=== PATIENT | female | born 1965 | race Caucasian/White ===

== ENCOUNTER 2016-12-23 15:10 | Observation (INO) | payer MEDICAID ==
[~2016-12-23] VITALS: Ht 172.7 cm; Wt 109.0 kg
[2016-12-23 15:24] VITALS: BP 143/89; PULSE 82; RESP 17; TEMP 98.3; O2SAT 96
[2016-12-23 15:28] VITALS: BP 143/89; PULSE 79; RESP 16; O2SAT 97
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
[2016-12-23 16:00] LABS: AUTOMATED NEUTROPHIL # 6.1 TH/MM3 (1.8-7.7); BASOPHIL % 0.4 % (0.0-2.0); EOSINOPHIL # 0.4 TH/MM3 (0-0.4); EOSINOPHIL % 3.4 % (0.0-4.0); HEMATOCRIT 37.5 % (35.0-46.0); HEMO FLAGS DIFF FINAL; LYMPH % 27.6 % (9.0-44.0); LYMPHOCYTE # 2.9 TH/MM3 (1.0-4.8); MEAN CELL VOLUME 84.3 FL (80.0-100.0); MEAN CORPUSCULAR HEMOGLOBIN 26.9 PG (27.0-34.0); MEAN CORPUSCULAR HGB CONC 31.9 % (32.0-36.0); MONO % 9.9 % (0.0-8.0); NEUT % 58.7 % (16.0-70.0); PLATELET COUNT 304 TH/MM3 (150-450); RED BLOOD COUNT 4.45 MIL/MM3 (4.00-5.30); WHITE BLOOD COUNT 10.4 TH/MM3 (4.0-11.0)
[2016-12-23 16:13] LABS: ANION GAP 7 MEQ/L (5-15); BICARBONATE 24.6 MEQ/L (21.0-32.0); BLOOD UREA NITROGEN 23 MG/DL (7-18); CHLORIDE 108 MEQ/L (98-107); GLOMERULAR FILTRATION RATE 53 ML/MIN (>89); MAGNESIUM 2.3 MG/DL (1.5-2.5); POTASSIUM 3.6 MEQ/L (3.5-5.1); SODIUM (NA) 140 MEQ/L (136-145)
[2016-12-23 16:15] LABS: PROTHROMBIN TIME - PATIENT 10.5 SEC (9.8-11.6)
[2016-12-23] MEDS ORDERED: AMLO5TAB2 PO (16:19)
[2016-12-23] MEDS ORDERED: LEVO.05 PO (16:19)
[2016-12-23] MEDS ORDERED: HYDR-3366 PO (16:19)
[2016-12-23] MEDS ORDERED: LYRI100C PO (16:19)
[2016-12-23] MEDS ORDERED: TIZA4TAB PO (16:19)
[2016-12-23] MEDS ORDERED: OMEP20TA PO (16:19)
[2016-12-23] MEDS ORDERED: LISI40TA PO (16:19)
[2016-12-23] MEDS ORDERED: METO50TA PO (16:19)
--- NOTE | 2016-12-23 16:25 | RADRPT ---
EXAM DATE/TIME: 12/23/2016 15:45 [facility] COMPARISON: No previous studies available for comparison. INDICATIONS : Chest pain and back pain. MEDICAL HISTORY : Congestive heart failure. Myocardial infarction. Chronic obstructive pulmonary disease. SURGICAL HISTORY : None. ENCOUNTER: Initial ACUITY: 1 day PAIN SCORE: 7/10 LOCATION: Bilateral chest FINDINGS: There is mild streaky atelectasis of both bases. No pleural effusion. No pneumothorax. Heart size upp er limits of normal. CONCLUSION: Mild bibasilar atelectasis. Surjit Martel MD on December 23, 2016 at 16:23 Board Certified Radiologist. This report was verified electronically.
[2016-12-23] MEDS ORDERED: LORazepam 2 MG/ML VIAL IV PUSH ONE (16:45)
[2016-12-23] MEDS ORDERED: ACETAMINOPHEN/HYDROcodone 325 MG/10 MG TAB PO ONE (17:30)
[2016-12-23] MEDS ORDERED: MORPHINE SULFATE 4 MG/ML INJ IV PUSH ONE (17:45)
[2016-12-23] MEDS ORDERED: CEPH-460 PO (17:53)
[2016-12-23] MEDS ORDERED: SODIUM CHLORIDE 0.9% FLUSH 10 ML FLUSH IV FLUSH PRN (18:00)
[2016-12-23] MEDS ORDERED: CEPHALEXIN MONOHYDRATE 500 MG CAP PO ONE (18:00)
[2016-12-23 18:22] VITALS: BP 151/85; PULSE 86; RESP 16; O2SAT 95
[2016-12-23 19:01] LABS: CREATINE KINASE 109 U/L (26-192)
--- NOTE | 2016-12-23 19:13 | EKG ---
Date Performed: 12/23/2016 Time Performed: 15:33:04 PTAGE: 51 years EKG: Sinus rhythm POSSIBLE LEFT ATRIAL ENLARGEMENT BORDERLINE ECG NO PREVIOUS TRACING DOCTOR: Loi Arthur Interpretating Date/Time 12/23/2016 19:12:43
[2016-12-23 19:17] LABS: CKMB 2.8 NG/ML (0.5-3.6)
[2016-12-23 20:00] VITALS: O2SAT 97
[2016-12-23 20:42] VITALS: BP 147/87; PULSE 66; RESP 18; TEMP 98.7; O2SAT 97
--- NOTE | 2016-12-23 21:44 | EKG ---
Date Performed: 12/23/2016 Time Performed: 18:40:02 PTAGE: 51 years EKG: Sinus rhythm POSSIBLE LEFT ATRIAL ENLARGEMENT BORDERLINE ECG PREVIOUS TRACING : 12/23/2016 15.33 No significant change from previous tracing noted. DOCTOR: Loi Arthur Interpretating Date/Time 12/23/2016 21:42:36
[2016-12-23] MEDS: SODIUM CHLORIDE 0.9% FLUSH 10 ML FLUSH IV FLUSH SCH (21:55)
[2016-12-23 22:41] LABS: CREATINE KINASE 100 U/L (26-192)
[2016-12-24] VITALS (7 sets, daily range): BP systolic 130–159; BP diastolic 69–79; PULSE 73–99; RESP 16–20; TEMP 98–98.6; O2SAT 87–99
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
[2016-12-24] MEDS ORDERED: ACETAMINOPHEN 500 MG CPLT PO PRN (08:00)
[2016-12-24] MEDS ORDERED: ONDANSETRON HCL 4 MG/2 ML VIAL IV PUSH PRN (08:00)
[2016-12-24] MEDS ORDERED: NITROGLYCERIN 0.4 MG SL 25 TABS/BTL SL PRN (08:00)
[2016-12-24] MEDS: SODIUM CHLORIDE 0.9% FLUSH 10 ML FLUSH IV FLUSH SCH (09:00)
[2016-12-24] MEDS ORDERED: ASPIRIN 325 MG TAB PO SCH (09:00)
[2016-12-24] MEDS ORDERED: REGADENOSON INJ 0.4 MG/5 ML SYR ONE (09:43)
--- NOTE | 2016-12-24 11:24 | RADRPT ---
EXAM DATE/TIME: 12/24/2016 08:43 [facility] COMPARISON: No previous studies available for comparison. INDICATIONS : Midsternal chest pain. Angina. Congestive heart failure. DOSE: 35.0 mCi Tc99m Myoview at stress. 11.0 mCi Tc99m Myoview at rest. 0.4 mg Lexiscan STRESS SYMPTOMS: None. EJECTION FRACTION: 53% MEDICAL HISTORY : Myocardial infarction. Chronic obstructive pulmonary disease. Hypertension. SURGICAL HISTORY : Cholecystectomy. Left knee and neck surgery. ENCOUNTER: Initial ACUITY: 1 day PAIN SCALE: 3/10 LOCATION: Midsternal chest TECHNIQUE: The patient underwent pharmacologic stress with infusion of prescribed dose. Continuous ECG tracing was monitored during stress. Gated SPECT imaging was performed after stress and conventional SPECT i maging was performed at rest. The examination was performed on a SPECT/CT scanner, both attenuation and non-corrected datasets were reviewed. FINDINGS: DISTRIBUTION: The maximum perfused segment at stress is in the anterior wall. PERFUSION STUDY: Pattern of perfusion at stress shows a fixed diminished perfusion to the lower anterior wall. There i s about 10% redistribution segments of the anterior and lateral marte which would not be considered s tatistically significant. GATED STUDY: There is intact wall motion and thickening without hypokinetic or dyskinetic segments. CONCLUSION: 1. Fixed diminished perfusion to the low anterior wall possibly representing an old LAD infarct. 2. No reversibility to suggest ischemia. 3. Adequate wall motion throughout with an estimated ejection fraction of 53%. RISK CATEGORY: Low (<1% Annual Mortality Rate) Awais Yee MD on December 24, 2016 at 10:52 Board Certified Radiologist. This report was verified electronically.
--- NOTE | 2016-12-24 12:13 | HHI.DCPOC ---
Discharge Care Plan Diagnosis: (1) Atypical chest pain (2) Hx of coronary artery disease (3) Situational stress (4) Folliculitis Goals to Promote Your Health * To prevent worsening of your condition and complications * To maintain your health at the optimal level Directions to Meet Your Goals Take your medications as prescribed Follow your dietary instruction Follow activity as directed Keep your appointments as scheduled Take your immunizations and boosters as scheduled If your symptoms worsen call your PCP, if no PCP go to Urgent Care Center or Emergency Room Smoking is Dangerous to Your Health. Avoid second hand smoke Call the 24-hour hour crisis hotline for domestic abuse at [facility] Dec 24, 2016 12:03
[2016-12-24] MEDS ORDERED: ACETAMINOPHEN/HYDROcodone 325 MG/10 MG TAB PO PRN (12:30)
[2016-12-24] MEDS ORDERED: CEPH-460 PO (12:31)
[2016-12-24] MEDS ORDERED: PREGABALIN 100 MG CAP PO SCH (13:00)
[2016-12-24] MEDS ORDERED: CEPHALEXIN MONOHYDRATE 500 MG CAP PO ONE (13:15)
--- NOTE | 2016-12-24 14:05 | EKG ---
Date Performed: 12/23/2016 Time Performed: 22:15:57 PTAGE: 51 years EKG: Sinus rhythm POSSIBLE LEFT ATRIAL ENLARGEMENT BORDERLINE ECG PREVIOUS TRACING : 12/23/2016 22.15 Since previous tracing, no significant change noted DOCTOR: Delta Pierre Interpretating Date/Time 12/25/2016 06:56:26
--- NOTE | 2016-12-24 14:07 | TR ---
Date Performed: 12/24/2016 Time Performed: 09:46:38 DOCTOR: Delta Pierre DRUG LIST: CLINICAL HISTORY: ANGINA REASON FOR TEST: Angina REASON FOR ENDING: OBSERVATION: CONCLUSION: Lexiscan stress test was performed under standard four minute protocol. Radionuclid e was injected one minute prior to ending the test. No electrocardiographic abormalities were present to suggest ischemia. Nuclear imaging and interpretation are pending. COMMENTS:
[2016-12-24] MEDS ORDERED: LEVOTHYROXINE SODIUM 50 MCG TAB PO SCH (15:00)
== END 2016-12-24 13:51 | disposition home or self-care (01) ==
LOC: NEPC 15:10 → NEDA 17:46 → NEPHCDU 19:04
DX: R07.89 Other chest pain (principal); I25.10 Atherosclerotic heart disease of native coronary artery without angina pectoris; L73.9 Follicular disorder, unspecified; F43.0 Acute stress reaction; I11.0 Hypertensive heart disease with heart failure; I50.9 Heart failure, unspecified; G25.81 Restless legs syndrome; J44.9 Chronic obstructive pulmonary disease, unspecified; I25.2 Old myocardial infarction; M79.7 Fibromyalgia; E03.9 Hypothyroidism, unspecified; K21.9 Gastro-esophageal reflux disease without esophagitis; I71.9 Aortic aneurysm of unspecified site, without rupture
CPT/HCPCS: 71010; 78452; 80048; 82550; 82552; 83735; 83880; 84484; 85025; 85610; 85730; 93005; 93017; 96374; 96375; 99285; A9502; G0378; J2060; J2270; J2785

== ENCOUNTER 2017-08-20 23:35 | Inpatient (IN) | payer MEDICAID ==
[~2017-08-20] VITALS: Ht 172.7 cm; Wt 125.3 kg
[2017-08-20] MEDS: methylPREDNISolone SOD SUCC 125 MG/2 ML VIAL IV PUSH SCH (19:30)
[2017-08-20] MEDS: RESP: ALBUTEROL 2.5 MG/IPRATROPIUM 0.5 MG NEB (SCH) INH ×2 (20:00→22:00)
[~2017-08-20 23:35] MED LIST: AMLO5TAB2 PO; CELE50CA PO; CEPH-460 PO; FURO40TA PO; HYDR-3366 PO; LEVO.05 PO; LISI40TA PO; LISINOPRIL 20 MG TAB PO SCH; LYRI100C PO; METO50TA PO; OMEP20TA93 PO; POTA-163 PO; PROZ20CA11 PO; ROPI2 PO; TIZA4TAB PO
[2017-08-21] VITALS (11 sets, daily range): BP systolic 127–189; BP diastolic 68–99; PULSE 63–82; RESP 20–22; TEMP 96.9–97.9; O2SAT 90–95
[2017-08-21] MEDS: RESP: ALBUTEROL 2.5 MG/IPRATROPIUM 0.5 MG NEB (SCH) INH ×9 (00:02→20:02)
[2017-08-21] MEDS: HEPARIN SODIUM - SQ 10,000 UNITS/ML VIAL SQ SCH ×3 (00:23→20:40)
[2017-08-21] MEDS: SODIUM CHLORIDE 0.9% FLUSH 10 ML FLUSH IV FLUSH SCH ×3 (00:23→20:38)
[2017-08-21] MEDS: PREGABALIN 100 MG CAP PO SCH ×3 (00:24→20:39)
[2017-08-21] MEDS: ACETAMINOPHEN/HYDROcodone 325 MG/10 MG TAB PO PRN ×4 (00:30→20:41)
[2017-08-21] MEDS ORDERED: FUROSEMIDE 40 MG/4 ML VIAL IV PUSH ONE (00:45)
[2017-08-21] MEDS: SODIUM CHLORIDE 0.9% FLUSH 10 ML FLUSH IV FLUSH PRN ×2 (01:12→06:42)
[2017-08-21] MEDS: methylPREDNISolone SOD SUCC 125 MG/2 ML VIAL IV PUSH SCH ×4 (01:12→20:38)
[2017-08-21] MEDS: LEVOTHYROXINE SODIUM 50 MCG TAB PO SCH (05:57)
[2017-08-21] MEDS: PANTOPRAZOLE SOD 20 MG DELAYED RELEASE TAB PO SCH (08:45)
[2017-08-21] MEDS: METOPROLOL TARTRATE 50 MG TAB PO SCH (08:45)
[2017-08-21] MEDS: FUROSEMIDE 40 MG TAB PO SCH ×2 (08:46→20:39)
[2017-08-21] MEDS: POTASSIUM CHLORIDE 20 MEQ CONTROLLED RELEASE TAB PO SCH (08:46)
[2017-08-21] MEDS: amLODIPine BESYLATE 5 MG TAB PO SCH (08:46)
[2017-08-21] MEDS: FLUoxetine HCL 20 MG CAP PO SCH (08:46)
[2017-08-21] MEDS ORDERED: FUROSEMIDE 20 MG/2 ML VIAL IV PUSH SCH (09:00)
[2017-08-21] MEDS ORDERED: POTASSIUM CHLORIDE 10 MEQ CONTROLLED RELEASE TAB PO SCH (09:00)
[2017-08-21 11:18] LABS: AUTOMATED NEUTROPHIL # 8.8 TH/MM3 (1.8-7.7); BASOPHIL # 0.1 TH/MM3 (0-0.2); BASOPHIL % 0.7 % (0.0-2.0); HEMATOCRIT 34.4 % (35.0-46.0); HEMOGLOBIN 10.8 GM/DL (11.6-15.3); LYMPH % 5.2 % (9.0-44.0); LYMPHOCYTE # 0.5 TH/MM3 (1.0-4.8); MEAN CELL VOLUME 87.2 FL (80.0-100.0); MEAN CORPUSCULAR HEMOGLOBIN 27.3 PG (27.0-34.0); MEAN CORPUSCULAR HGB CONC 31.3 % (32.0-36.0); MEAN PLATELET VOLUME 8.8 FL (7.0-11.0); MONO % 1.1 % (0.0-8.0); MONOCYTE # 0.1 TH/MM3 (0-0.9); PLATELET COUNT 232 TH/MM3 (150-450); RED BLOOD COUNT 3.94 MIL/MM3 (4.00-5.30); RED CELL DISTRIBUTION WIDTH 14.5 % (11.6-17.2); WHITE BLOOD COUNT 9.5 TH/MM3 (4.0-11.0)
[2017-08-21 11:42] LABS: BICARBONATE 25.6 MEQ/L (21.0-32.0); CALCIUM 8.9 MG/DL (8.5-10.1); CREATININE 1.1 MG/DL (0.50-1.00)
--- NOTE | 2017-08-21 12:38 | HHI.HP ---
[facility] Primary Care Physician Unknown Admission Diagnosis Diagnoses: Chief Complaint: Shortness of breath and cough Travel History International Travel<30 Days: No Contact w/Intl Traveler <30 Da: No Traveled to Known Affected Are: No History of Present Illness This patient is a very pleasant 52-year-old male with a history of COPD and sleep apnea who has come to the hospital with increasing shortness of breath and increased work of breathing over the last 3 days. There is been no fever or chills. She does have a dry cough and has admitted some hoarseness. She did come to the emergency room in [place] and was found to be hypoxemic at 87% on room air. She did recover quickly with oxygen. Her x-ray does show some interstitial markings. And the patient's are recommended for further evaluation for acute COPD exacerbation. She did improve with bronchodilators by nebulizer as well as IV steroids. Review of Systems Constitutional: DENIES: Diaphoretic episodes, Fatigue, Fever, Weight gain, Weight loss, Chills, Dizziness, Change in appetite, Night Sweats Endocrine: DENIES: Abnorml menstrual pattern, Heat/cold intolerance, Polydipsia , Polyuria, Polyphagia Eyes: DENIES: Blurred vision, Diplopia, Eye inflammation, Eye pain, Vision loss , Photosensitivity, Double Vision Ears, nose, mouth, throat: DENIES: Tinnitus, Hearing loss, Vertigo, Nasal discharge, Oral lesions, Throat pain, Hoarseness, Ear Pain, Running Nose, Epistaxis, Sinus Pain, Toothache, Odynophagia Respiratory: COMPLAINS OF: Cough, Shortness of breath, DENIES: Apneas, Snoring , Wheezing, Hemoptysis, Sputum production Cardiovascular: DENIES: Chest pain, Palpitations, Syncope, Dyspnea on Exertion , PND, Lower Extremity Edema, Orthopnea, Claudication Gastrointestinal: DENIES: Abdominal pain, Black stools, Bloody stools, Constipation, Diarrhea, Nausea, Vomiting, Difficulty Swallowing, Anorexia Genitourinary: DENIES: Abnormal vaginal bleeding, Dysmenorrhea, Dyspareunia, Sexual dysfunction, Urinary frequency, Urinary incontinence, Urgency, Hematuria , Dysuria, Nocturia, Vaginal discharge Musculoskeletal: DENIES: Joint pain, Muscle aches, Stiffness, Joint Swelling, Back pain, Neck pain Integumentary: DENIES: Abnormal pigmentation, Pruritus, Rash, Nail changes, Breast masses, Breast skin changes, Nipple discharge Hematologic/lymphatic: DENIES: Bruising, Lymphadenopathy Immunologic/allergic: DENIES: Eczema, Urticaria Neurologic: DENIES: Abnormal gait, Headache, Localized weakness, Paresthesias, Seizures, Speech Problems, Tremor, Poor Balance Psychiatric: DENIES: Anxiety, Confusion, Mood changes, Depression, Hallucinations, Agitation, Suicidal Ideation, Homicidal Ideation, Delusions Except as stated in HPI: all other systems reviewed are Neg Past Family Social History Past Medical History COPD Hypertension Chronic pain Past Surgical History Reviewed in the EMR, tonsillectomy Neck surgery Appendectomy Cholecystectomy Reported Medications Reviewed in the EMR, nothing new Allergies: Coded Allergies: Iodinated Contrast- Oral and IV Dye (Verified Allergy, Unknown, 08/20/17) Sulfa (Sulfonamide Antibiotics) (Verified Allergy, Unknown, 08/20/17) Active Ordered Medications Reviewed in the EMR Family History Reviewed in the EMR, mother from sepsis, father from complications of COPD and emphysema Social History , no recent travel, recently lost her son in February Currently in counseling for depression Patient quit smoking over 15 years ago, occasional alcohol Physical Exam Vital Signs Vital Signs Date Time Temp Pulse Resp B/P (MAP) Pulse Ox O2 Delivery O2 Flow Rate FiO2 08/21/17 09:45 20 08/21/17 08:00 96.9 75 20 171/82 (111) 95 08/21/17 07:41 20 08/21/17 07:40 92 Nasal Cannula 4.00 08/21/17 04:08 93 30 08/21/17 01:45 93 30 08/21/17 01:30 97.9 82 22 189/99 (129) 92 08/21/17 00:45 92 Nasal Cannula 5.00 Humidified 08/21/17 00:03 92 Nasal Cannula 4.00 Physical Exam GENERAL: This is an obese, well-developed patient, complaining of hoarseness and shortness of breath SKIN: No rashes, ecchymoses or lesions. Cool and dry. HEAD: Atraumatic. Normocephalic. No temporal or scalp tenderness. EYES: Pupils equal round and reactive. Extraocular motions intact. No scleral icterus. No injection or drainage. ENT: Nose without bleeding, purulent drainage or septal hematoma. Throat without erythema, tonsillar hypertrophy or exudate. Uvula midline. Airway patent. NECK: Trachea midline. No JVD or lymphadenopathy. Supple, nontender, no meningeal signs. CARDIOVASCULAR: Regular rate and rhythm without murmurs, gallops, or rubs. RESPIRATORY: Clear to auscultation. Breath sounds equal bilaterally. No wheezes , rales, or rhonchi. GASTROINTESTINAL: Abdomen soft, non-tender, nondistended. No hepato-splenomegaly , or palpable masses. No guarding. MUSCULOSKELETAL: Extremities without clubbing, cyanosis, or edema. No joint tenderness, effusion, or edema noted. No calf tenderness. Negative Homans sign bilaterally. NEUROLOGICAL: Awake and alert. Cranial nerves II through XII intact. Motor and sensory grossly within normal limits. Five out of 5 muscle strength in all muscle groups. Normal speech. Laboratory Laboratory Tests Test 08/21/17 10:40 White Blood Count 9.5 Red Blood Count 3.94 Hemoglobin 10.8 Hematocrit 34.4 Mean Corpuscular Volume 87.2 Mean Corpuscular Hemoglobin 27.3 Mean Corpuscular Hemoglobin Concent 31.3 Red Cell Distribution Width 14.5 Platelet Count 232 Mean Platelet Volume 8.8 Neutrophils (%) (Auto) 93.0 Lymphocytes (%) (Auto) 5.2 Monocytes (%) (Auto) 1.1 Eosinophils (%) (Auto) 0.0 Basophils (%) (Auto) 0.7 Neutrophils # (Auto) 8.8 Lymphocytes # (Auto) 0.5 Monocytes # (Auto) 0.1 Eosinophils # (Auto) 0.0 Basophils # (Auto) 0.1 CBC Comment DIFF FINAL Differential Comment Blood Urea Nitrogen 20 Creatinine 1.10 Random Glucose 354 Calcium Level 8.9 Sodium Level 137 Potassium Level 4.0 Chloride Level 102 Carbon Dioxide Level 25.6 Anion Gap 9 Estimat Glomerular Filtration Rate 52 Result Diagram: 08/21/17 1040 08/21/17 1040 Imaging Chest x-ray shows increased interstitial markings on my review Caprini VTE Risk Assessment Caprini VTE Risk Assessment: No/Low Risk (score <= 1) Caprini Risk Assessment Model Point Value = 1 Point Value = 2 Point Value = 3 Point Value = 5 Age 41-60 Minor surgery BMI > 25 kg/m2 Swollen legs Varicose veins or History of unexplained or recurrent spontaneous Oral contraceptives or hormone replacement Sepsis (< 1 month) Serious lung disease, including pneumonia (< 1 month) Abnormal pulmonary function Acute myocardial infarction Congestive heart failure (< 1 month) History of inflammatory bowel disease Medical patient at bed rest Age 61-74 Arthroscopic surgery Major open surgery (> 45 min) Laparoscopic surgery (> 45 min) Malignancy Confined to bed (> 72 hours) Immobilizing plaster cast Central venous access Age >= 75 History of VTE Family history of VTE Factor V Leiden Prothrombin [id number] Lupus anticoagulant Anticardiolipin antibodies Elevated serum homocysteine Heparin-induced thrombocytopenia Other congenital or acquired thrombophilia Stroke (< 1 month) Elective arthroplasty Hip, pelvis, or leg fracture Acute spinal cord injury (< 1 month) Prophylaxis Regimen Total Risk Factor Score Risk Level Prophylaxis Regimen 0-1 Low Early ambulation 2 Moderate Order ONE of the following: *Sequential Compression Device (SCD) *Heparin 5000 units SQ BID 3-4 Higher Order ONE of the following medications: *Heparin 5000 units SQ TID *Enoxaparin/Lovenox 40 mg SQ daily (WT < 150 kg, CrCl > 30 mL/min) *Enoxaparin/Lovenox 30 mg SQ daily (WT < 150 kg, CrCl > 10-29 mL/min) *Enoxaparin/Lovenox 30 mg SQ BID (WT < 150 kg, CrCl > 30 mL/min) AND/OR *Sequential Compression Device (SCD) 5 or more Highest Order ONE of the following medications: *Heparin 5000 units SQ TID (Preferred with Epidurals) *Enoxaparin/Lovenox 40 mg SQ daily (WT < 150 kg, CrCl > 30 mL/min) *Enoxaparin/Lovenox 30 mg SQ daily (WT < 150 kg, CrCl > 10-29 mL/min) *Enoxaparin/Lovenox 30 mg SQ BID (WT < 150 kg, CrCl > 30 mL/min) AND *Sequential Compression Device (SCD) Assessment and Plan Problem List: (1) COPD exacerbation ICD Code: J44.1 - Chronic obstructive pulmonary disease with (acute) exacerbation Plan: With hypoxemic respiratory failure 87% Improved Continue with nebulized bronchodilators, continue with CPAP Patient does not use O2 at home Continue with IV steroids Assessment and Plan Continue with home medications for hypertension and back pain Likely discharge in a.m. Code Status Full code Discussed Condition With Patient, Casandra Carmichael RN, MD August 21, 2017 12:38
[2017-08-22] VITALS (15 sets, daily range): BP systolic 117–160; BP diastolic 73–84; PULSE 61–76; RESP 18–20; TEMP 95.6–97.6; O2SAT 30–96
[2017-08-22] MEDS: RESP: ALBUTEROL 2.5 MG/IPRATROPIUM 0.5 MG NEB (SCH) INH ×5 (00:28→20:20)
[2017-08-22] MEDS: methylPREDNISolone SOD SUCC 125 MG/2 ML VIAL IV PUSH SCH ×4 (03:10→21:20)
[2017-08-22] MEDS: ACETAMINOPHEN/HYDROcodone 325 MG/10 MG TAB PO PRN ×3 (03:11→18:13)
[2017-08-22] MEDS: LEVOTHYROXINE SODIUM 50 MCG TAB PO SCH (05:53)
[2017-08-22] MEDS: METOPROLOL TARTRATE 50 MG TAB PO SCH (09:07)
[2017-08-22] MEDS: FLUoxetine HCL 20 MG CAP PO SCH (09:07)
[2017-08-22] MEDS: HEPARIN SODIUM - SQ 10,000 UNITS/ML VIAL SQ SCH ×2 (09:07→21:23)
[2017-08-22] MEDS: PANTOPRAZOLE SOD 20 MG DELAYED RELEASE TAB PO SCH (09:07)
[2017-08-22] MEDS: amLODIPine BESYLATE 5 MG TAB PO SCH (09:07)
[2017-08-22] MEDS: POTASSIUM CHLORIDE 20 MEQ CONTROLLED RELEASE TAB PO SCH (09:07)
[2017-08-22] MEDS: PREGABALIN 100 MG CAP PO SCH ×2 (09:07→21:22)
[2017-08-22] MEDS: FUROSEMIDE 40 MG TAB PO SCH (09:07)
[2017-08-22] MEDS: SODIUM CHLORIDE 0.9% FLUSH 10 ML FLUSH IV FLUSH SCH ×2 (09:08→21:21)
[2017-08-22] MEDS ORDERED: GLUCAGON 1 MG/ML VIAL OTHER PRN (10:30)
[2017-08-22] MEDS ORDERED: DEXTROSE 50% IN WATER 50 ML VIAL(D50) IV PUSH PRN (10:30)
--- NOTE | 2017-08-22 10:54 | HHI.PR ---
Subjective Remarks Patient with increased work of breathing overnight and requiring 425 L O2. Patient has been admitted to the hospital due to acute hypoxemic respiratory failure secondary to COPD exacerbation. Tolerating CPAP Objective Vitals Vital Signs Date Time Temp Pulse Resp B/P (MAP) Pulse Ox O2 Delivery O2 Flow Rate FiO2 08/22/17 10:33 18 08/22/17 10:33 18 08/22/17 09:37 95 30 08/22/17 08:25 97.6 76 18 160/76 (104) 93 08/22/17 07:51 96 Nasal Cannula 4.50 08/22/17 05:10 94 Nasal Cannula 4.50 08/22/17 04:05 30 30 08/22/17 02:05 94 Nasal Cannula 4.50 08/22/17 00:40 94 30 08/22/17 00:00 96.1 61 20 138/73 (94) 91 08/21/17 22:10 94 30 08/21/17 20:02 93 Nasal Cannula 4.50 08/21/17 20:00 97.0 74 20 127/68 (87) 90 08/21/17 20:00 90 Nasal Cannula 4.50 Humidified 08/21/17 16:00 97.8 63 20 138/72 (94) 94 08/21/17 12:00 97.1 70 21 155/83 (107) 95 I/O 08/21/17 08/21/17 08/21/17 08/22/17 08/22/17 08/22/17 07:00 15:00 23:00 07:00 15:00 23:00 Intake Total 900 ml 120 ml 800 ml 720 ml Output Total 1200 ml Balance 900 ml 120 ml -400 ml 720 ml Intake Oral 900 ml 120 ml 800 ml 720 ml Output Urine Total 1200 ml # Voids 4 4 # Bowel Movements 0 0 1 Result Diagram: 08/21/17 1040 08/21/17 1040 Objective Remarks GENERAL: This is a well-nourished, obese female who is short of breath CARDIOVASCULAR: Regular rate and rhythm without murmurs, gallops, or rubs. RESPIRATORY: Decreased breath sounds bilaterally, wheezes at the base GASTROINTESTINAL: Abdomen soft, non-tender, nondistended. Normal active bowel sounds MUSCULOSKELETAL: Extremities without clubbing, cyanosis, or edema. NEURO: Alert & Oriented x4 to person, place, time, situation. Moves all ext x4 A/P Problem List: (1) COPD exacerbation ICD Code: J44.1 - Chronic obstructive pulmonary disease with (acute) exacerbation Plan: With hypoxemic respiratory failure 87% Still requiring O2 overnight with increased work of breathing Continue with nebulized bronchodilators, continue with CPAP Patient does use O2 at night Continue with IV steroids, antibiotics Follow-up repeat chest x-ray today , Echo pending to rule out right-sided heart disease Casandra Wilkes MD August 22, 2017 10:54
--- NOTE | 2017-08-22 11:23 | RADRPT ---
EXAM DATE/TIME: 08/22/2017 11:04 [place] COMPARISON: CHEST SINGLE AP, August 20, 2017, 17:40. INDICATIONS : Short of breath. MEDICAL HISTORY : Hypertension. Congestive heart failure. Myocardial infarction. Chronic obstructive pulmonary dis ease SURGICAL HISTORY : Appendectomy. Cholecystectomy ENCOUNTER: Subsequent ACUITY: 3 days PAIN SCORE: 0/10 LOCATION: Bilateral chest FINDINGS: There has been some improvement of the previously noted pulmonary edema. There continues to be some p ulmonary venous congestion bilaterally. There are multiple platelike areas of atelectasis in the mid to lower lung mejia bilaterally no significant pleural effusions are seen. There is no pneumothorax. The heart size is enlarged but stable. The bony structures are stable. CONCLUSION: 1. There has been some mild improvement in the pulmonary edema compared to the prior study. There con tinues to be some pulmonary venous congestion. 2. Bilateral multiple platelike areas of atelectasis in the mid to lower lung mejia. Manuel Chase MD on August 22, 2017 at 11:19 Board Certified Radiologist. This report was verified electronically.
[2017-08-22] MEDS: INSULIN ASPART SUPPLEMENTAL SCALE SQ SCH ×3 (12:00→21:22)
[2017-08-22] MEDS: AZITHROMYCIN 250 MG TAB PO SCH (13:35)
--- NOTE | 2017-08-22 16:25 | ECHRPT ---
Indication: Shortness of breath CONCLUSIONS Technically exceedingly difficult and very limited study. The left ventricle is not well visualized . Grossly, left ventricular function appears normal. Regional wall motion abnormalities cannot be excluded. Valvular assessment is very suboptimal. The mitral and aortic valves grossly appear to be normal. The tricuspid and pulmonic valves are poorly visualized. BP: / HR: Rhythm: Sinus MEASUREMENTS (Male / Female) Normal Values Technical Quality:Technically difficult study 2D ECHO LV Diastolic Diameter PLAX 4.1 cm 4.2 - 5.9 / 3.9 - 5.3 cm LV Systolic Diameter PLAX 3.2 cm IVS Diastolic Thickness 1.3 cm 0.6 - 1.0 / 0.6 - 0.9 cm LVPW Diastolic Thickness 1.2 cm 0.6 - 1.0 / 0.6 - 0.9 cm LV Relative Wall Thickness 0.6 LVOT Diameter 1.9 cm M-MODE Aortic Root Diameter MM 3.8 cm LA Systolic Diameter MM 3.2 cm LA Ao Ratio MM 0.8 AV Cusp Separation MM 2.2 cm DOPPLER Mitral E Point Velocity 108.0 cm/s Mitral A Point Velocity 81.9 cm/s Mitral E to A Ratio 1.3 PV Peak Velocity 84.2 cm/s PV Peak Gradient 2.8 mmHg FINDINGS LEFT VENTRICLE Technically exceedingly difficult and very limited study. The left ventricle is not well visualized . Grossly, left ventricular function appears normal. Regional wall motion abnormalities cannot be excluded. RIGHT VENTRICLE Normal right ventricular size and systolic function. LEFT ATRIUM The left atrium was not well visualized. RIGHT ATRIUM The right atrium is not well visualized. ATRIAL SEPTUM Normal atrial septal thickness without atrial level shunting by limited color doppler interrogation. AORTA The aortic root and proximal ascending aorta are normal in size on limited imaging. MITRAL VALVE Structurally normal mitral valve. No mitral valve stenosis or regurgitation. AORTIC VALVE Trileaflet aortic valve. No aortic valve stenosis or regurgitation. TRICUSPID VALVE Structurally normal tricuspid valve. No tricuspid valve stenosis or regurgitation. PULMONARY VALVE The pulmonary valve is not well visualized. VESSELS The inferior vena cava is normal in size. PERICARDIUM No pericardial effusion. Loi Arthur MD (Electronically Signed) Final Date:22 Aug 2017 16:24
[2017-08-22] MEDS: FUROSEMIDE 40 MG/4 ML VIAL IV PUSH SCH (18:13)
[2017-08-23] VITALS: BP 132/83; PULSE 61; RESP 20; TEMP 97.3; O2SAT 96
[2017-08-23 01:00] VITALS: O2SAT 95
[2017-08-23] MEDS: ACETAMINOPHEN/HYDROcodone 325 MG/10 MG TAB PO PRN ×2 (02:07→09:28)
[2017-08-23] MEDS: methylPREDNISolone SOD SUCC 125 MG/2 ML VIAL IV PUSH SCH ×2 (02:07→09:28)
[2017-08-23 04:05] VITALS: O2SAT 30
[2017-08-23] MEDS: LEVOTHYROXINE SODIUM 50 MCG TAB PO SCH (06:22)
[2017-08-23 06:52] LABS: AUTOMATED NEUTROPHIL # 9.5 TH/MM3 (1.8-7.7); BASOPHIL % 0.2 % (0.0-2.0); EOSINOPHIL % 0.1 % (0.0-4.0); HEMATOCRIT 35.2 % (35.0-46.0); HEMOGLOBIN 11.4 GM/DL (11.6-15.3); LYMPH % 7.4 % (9.0-44.0); LYMPHOCYTE # 0.8 TH/MM3 (1.0-4.8); MEAN CELL VOLUME 86.9 FL (80.0-100.0); MEAN CORPUSCULAR HEMOGLOBIN 28.2 PG (27.0-34.0); MEAN CORPUSCULAR HGB CONC 32.5 % (32.0-36.0); MEAN PLATELET VOLUME 8.5 FL (7.0-11.0); MONO % 1.5 % (0.0-8.0); MONOCYTE # 0.2 TH/MM3 (0-0.9); NEUT % 90.8 % (16.0-70.0); PLATELET COUNT 267 TH/MM3 (150-450); RED BLOOD COUNT 4.05 MIL/MM3 (4.00-5.30); RED CELL DISTRIBUTION WIDTH 13.9 % (11.6-17.2); WHITE BLOOD COUNT 10.5 TH/MM3 (4.0-11.0)
[2017-08-23 07:06] LABS: CALCIUM 8.6 MG/DL (8.5-10.1)
[2017-08-23 07:07] LABS: BICARBONATE 26.5 MEQ/L (21.0-32.0)
[2017-08-23] MEDS: RESP: ALBUTEROL 2.5 MG/IPRATROPIUM 0.5 MG NEB (SCH) INH (07:25)
[2017-08-23 07:26] VITALS: O2SAT 94
[2017-08-23 08:00] VITALS: BP 149/78; PULSE 62; RESP 19; TEMP 97.8; O2SAT 95
[2017-08-23] MEDS: INSULIN ASPART SUPPLEMENTAL SCALE SQ SCH ×2 (08:00→12:00)
[2017-08-23] MEDS: SODIUM CHLORIDE 0.9% FLUSH 10 ML FLUSH IV FLUSH SCH (09:27)
[2017-08-23] MEDS: PREGABALIN 100 MG CAP PO SCH (09:28)
[2017-08-23] MEDS: FLUoxetine HCL 20 MG CAP PO SCH (09:28)
[2017-08-23] MEDS: FUROSEMIDE 40 MG/4 ML VIAL IV PUSH SCH (09:28)
[2017-08-23] MEDS: METOPROLOL TARTRATE 50 MG TAB PO SCH (09:28)
[2017-08-23] MEDS: AZITHROMYCIN 250 MG TAB PO SCH (09:29)
[2017-08-23] MEDS: POTASSIUM CHLORIDE 20 MEQ CONTROLLED RELEASE TAB PO SCH (09:29)
[2017-08-23] MEDS: PANTOPRAZOLE SOD 20 MG DELAYED RELEASE TAB PO SCH (09:29)
[2017-08-23] MEDS: amLODIPine BESYLATE 5 MG TAB PO SCH (09:29)
[2017-08-23] MEDS: HEPARIN SODIUM - SQ 10,000 UNITS/ML VIAL SQ SCH (09:30)
[2017-08-23] MEDS ORDERED: PRED10PA PO (11:22)
[2017-08-23] MEDS ORDERED: HYDR-3366 PO (11:22)
[2017-08-23] MEDS ORDERED: Albuterol-Ipratropium Neb INH (11:22)
[2017-08-23] MEDS ORDERED: AZIT250T3 PO (11:22)
--- NOTE | 2017-08-23 11:23 | HHI.DCPOC ---
Discharge Care Plan Diagnosis: (1) COPD exacerbation (2) Hx of coronary artery disease (3) Atypical chest pain Goals to Promote Your Health * To prevent worsening of your condition and complications * To maintain your health at the optimal level Directions to Meet Your Goals Take your medications as prescribed Follow your dietary instruction Follow activity as directed Keep your appointments as scheduled Take your immunizations and boosters as scheduled If your symptoms worsen call your PCP, if no PCP go to Urgent Care Center or Emergency Room Smoking is Dangerous to Your Health. Avoid second hand smoke Call the 24-hour hour crisis hotline for domestic abuse at Caasndra Wilkes MD August 23, 2017 11:23
--- NOTE | 2017-08-23 11:26 | HHI.DS ---
Discharge Summary Admission Date August 22, 2017 at 10:25 Discharge Date: August 23, 2017 Admitting Diagnosis (1) COPD exacerbation ICD Code: J44.1 - Chronic obstructive pulmonary disease with (acute) exacerbation Procedures none Brief History - From Admission This patient is a very pleasant 52-year-old male with a history of COPD and sleep apnea who has come to the hospital with increasing shortness of breath and increased work of breathing over the last 3 days. There is been no fever or chills. She does have a dry cough and has admitted some hoarseness. She did come to the emergency room in [place] and was found to be hypoxemic at 87% on room air. She did recover quickly with oxygen. Her x-ray does show some interstitial markings. And the patient's are recommended for further evaluation for acute COPD exacerbation. She did improve with bronchodilators by nebulizer as well as IV steroids. CBC/BMP: 08/23/17 0535 08/23/17 0535 Significant Findings Laboratory Tests Test 08/21/17 10:40 08/22/17 13:42 08/23/17 05:35 Red Blood Count 3.94 MIL/MM3 (4.00-5.30) Hemoglobin 10.8 GM/DL (11.6-15.3) 11.4 GM/DL (11.6-15.3) Hematocrit 34.4 % (35.0-46.0) Mean Corpuscular Hemoglobin Concent 31.3 % (32.0-36.0) Neutrophils (%) (Auto) 93.0 % (16.0-70.0) 90.8 % (16.0-70.0) Lymphocytes (%) (Auto) 5.2 % (9.0-44.0) 7.4 % (9.0-44.0) Neutrophils # (Auto) 8.8 TH/MM3 (1.8-7.7) 9.5 TH/MM3 (1.8-7.7) Lymphocytes # (Auto) 0.5 TH/MM3 (1.0-4.8) 0.8 TH/MM3 (1.0-4.8) Blood Urea Nitrogen 20 MG/DL (7-18) 41 MG/DL (7-18) Creatinine 1.10 MG/DL (0.50-1.00) Random Glucose 354 MG/DL (74-106) 139 MG/DL (74-106) Estimat Glomerular Filtration Rate 52 ML/MIN (>89) 58 ML/MIN (>89) Blood Gas Base Excess -3.3 mmol/L (-2-2) Arterial Blood pH 7.34 (7.380-7.420) Blood Gas Hemoglobin 11.3 G/DL (12.0-16.0) Imaging Last Impressions Chest X-Ray 08/22/17 0000 Signed Impressions: Service Date/Time: , August 22, 2017 11:04 - CONCLUSION: 1. There has been some mild improvement in the pulmonary edema compared to the prior study. There continues to be some pulmonary venous congestion. 2. Bilateral multiple platelike areas of atelectasis in the mid to lower lung mejia. Manuel Chase MD PE at Discharge GENERAL: This is a well-nourished, obese female who is short of breath CARDIOVASCULAR: Regular rate and rhythm without murmurs, gallops, or rubs. RESPIRATORY: Decreased breath sounds bilaterally, wheezes at the base GASTROINTESTINAL: Abdomen soft, non-tender, nondistended. Normal active bowel sounds MUSCULOSKELETAL: Extremities without clubbing, cyanosis, or edema. NEURO: Alert & Oriented x4 to person, place, time, situation. Moves all ext x4 Hospital Course Patient is a 52-year-old female with known COPD who had a exacerbation of COPD with some hypoxemia. Patient improved with IV steroids, nebulized bronchodilators. Patient did require oxygen therapy which she does have at home. She was also quite volume overloaded and required some diuresis. And echocardiogram was done but it was difficult to determine patient's heart function due to difficult study. Clinically the patient continued to improve and was discharged home Pt Condition on Discharge: Good Discharge Disposition: Discharge Home Discharge Time: <= 30 minutes Discharge Instructions DIET: Follow Instructions for: As Tolerated, No Restrictions Activities you can perform: Regular-No Restrictions Follow up Referrals: PCP Follow-up - 1 Week New Medications: Prednisone (21) 10 mg tab Dose Pack (Prednisone (21) 10 mg tab Dose Pack) 10 Mg Pack 10 MG PO DIRECTED for Inflammation, #1 DSPK 0 Refills Azithromycin (Azithromycin) 250 Mg Tab 500 MG PO DAILY for Infection, #5 TAB [Albuterol-Ipratropium Neb] () 1 AMPULE NEBU 1 AMPULE INH Q6HR WHILE AWAKE NEB for Chest Congestion/Cough, #90 Continued Medications: Amlodipine (Amlodipine) 5 Mg Tab 5 MG PO DAILY for Blood Pressure Management, #30 TAB 0 Refills Celecoxib (Celebrex) 50 Mg Cap 50 MG PO BID for Pain Management, CAP 0 Refills Fluoxetine (Prozac) 20 Mg Cap 20 MG PO DAILY, #30 CAP 0 Refills Furosemide (Furosemide) 40 Mg Tab 40 MG PO BID, #60 TAB 0 Refills Hydrocodone-Acetaminophen ([place]) 10-325 Mg Tab 1 TAB PO Q6H PRN for PAIN, #10 TAB 0 Refills (This prescription has been renewed ) Levothyroxine (Synthroid) 50 Mcg Tab 50 MCG PO DAILY for Thyroid, #30 TAB 0 Refills Metoprolol Tartrate (Metoprolol Tartrate) 50 Mg Tab 50 MG PO DAILY, #30 TAB 0 Refills Potassium Chloride ER (Potassium Chloride ER) 20 Meq Tab 20 MEQ PO DAILY for Electrolyte Replacement, #30 TAB 0 Refills Pregabalin (Lyrica) 100 Mg Cap 100 MG PO BID, #60 CAP 0 Refills Ropinirole (Requip) 2 Mg Tab 2 MG PO BID, #30 TAB 0 Refills Tizanidine (Tizanidine) 4 Mg Tab 5 MG PO TID for Muscle Spasm, TAB 0 Refills Casandra Wilkes MD August 23, 2017 11:26
[2017-08-23 12:00] VITALS: BP 117/62; PULSE 80; RESP 21; TEMP 97.6; O2SAT 98
== END 2017-08-23 14:02 | disposition home or self-care (01) | DRG 189 ==
LOC: PHEDDLT 23:35 → PH3A 23:45 → OBSVTOIN 08-22 10:25
PROVIDERS: ADMIT Hospitalist; ATTEND Hospitalist
DX: J96.01 Acute respiratory failure with hypoxia (principal); J44.1 Chronic obstructive pulmonary disease with (acute) exacerbation; I10 Essential (primary) hypertension; Z68.41 Body mass index [BMI] 40.0-44.9, adult; G47.30 Sleep apnea, unspecified; M54.9 Dorsalgia, unspecified; E87.70 Fluid overload, unspecified; E66.9 Obesity, unspecified; Z82.5 Family history of asthma and other chronic lower respiratory diseases; Z87.891 Personal history of nicotine dependence
CPT/HCPCS: 36600; 71045; 71046; 80048; 80053; 82805; 82948; 83880; 84484; 85025; 85610; 85730; 93005; 93306; 94002; 94003; 94618; 94640; 94664; 96365; 96367; 96372; 96374; 96375; 96376; G0378; J0456; J0696; J1644; J1815; J1940; J2930; J7050